=== PATIENT | female | born 1945 | race Caucasian/White ===

== ENCOUNTER 2016-10-10 14:35 | Emergency (ER) | payer MEDICARE, OTHER ==
[2016-10-10 14:59] VITALS: BP 151/71
--- NOTE | 2016-10-10 17:32 | EDM.PDOC ---
[id number]: BLOOD IN URINE Time Seen by Provider: 10/10/16 15:00 Source of Information: Reports: Patient History Limitations: Reports: No Limitations - History of Present Illness INITIAL COMMENTS - FREE TEXT/NARRATIVE: pt has blood in her urine which started suddenly last nite. She has not had hematuria in the past. She has a history of interstial cystitis. She is presently on cipro. Onset: Sudden Duration: Hour(s): Location: Reports: Other ( blood in the urine. She is not having severe pain. ) Associated Symptoms: Reports: No Other Symptoms Right Abdominal Pain Score (Numeric/FACES): 4 - Related Data Allergies Allergy/AdvReac Type Severity Reaction Status Date / Time codeine Allergy Dizziness Verified 10/10/16 15:44 Sulfa (Sulfonamide Allergy Rash Verified 10/10/16 15:44 Antibiotics) Home Meds: Home Meds Ciprofloxacin [Ciprofloxacin HCl] 1 tab PO DAILY 10/10/16 [History] Dicyclomine [Bentyl] 1 cap PO QID 10/10/16 [History] Lisinopril [Prinivil] 1 tab PO DAILY 10/10/16 [History] traZODone 1 tab PO BEDTIME 10/10/16 [History] Past Medical History HEENT History: Reports: Impaired Vision Cardiovascular History: Reports: Hypertension Genitourinary History: Reports: Renal Calculus, UTI, Recurrent, Other (See Below ) Other Genitourinary History: interstitial cystitis [employer]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: Musculoskeletal History: Reports: Fracture - Past Surgical History Female Surgical History: Reports: Hysterectomy, Salpingo-Oophorectomy Social & Family History - Tobacco Use Smoking Status *Q: Never Smoker - Recreational Drug Use Recreational Drug Use: No ED ROS GENERAL - Review of Systems Review Of Systems: See Below Constitutional: Reports: No Symptoms HEENT: Reports: No Symptoms Respiratory: Reports: No Symptoms Cardiovascular: Reports: No Symptoms Endocrine: Reports: No Symptoms GI/Abdominal: Reports: No Symptoms : Reports: Frequency, Hematuria Musculoskeletal: Reports: No Symptoms Skin: Reports: No Symptoms ED EXAM, RENAL/ - Physical Exam Exam: See Below Text/Narrative:: pt started passing blood in the urine last nite. This was painless. Exam Limited By: No Limitations General Appearance: Alert, Anxious Ears: Normal External Exam Nose: Normal Inspection Throat/Mouth: Normal Inspection Head: Atraumatic Neck: Normal Inspection Respiratory/Chest: No Respiratory Distress Cardiovascular: Regular Rate, Rhythm GI/Abdominal: Other ( mild supra pupic tenderness) (Female) Exam: Other (pt is post hysterectomy.) Back Exam: Normal Inspection Extremities: Normal Inspection Neurological: Alert, Oriented Course - Vital Signs Last Recorded V/S: Last Vital Signs Temp 35.2 C 10/10/16 15:40 Pulse 70 10/10/16 15:40 Resp 16 10/10/16 15:40 BP 151/71 H 10/10/16 15:40 Pulse Ox 97 10/10/16 15:40 - Orders/Labs/Meds Labs: Laboratory Tests 10/09/16 Range/Units 15:55 Urine Color Red Urine Appearance Cloudy Urine pH 7.0 (4.5-8.0) Ur Specific [place] 1.015 (1.008-1.030) Urine Protein Trace (NEGATIVE) mg/dL Urine Glucose (UA) Normal (NEGATIVE) mg/dL Urine Ketones Negative (NEGATIVE) mg/dL Urine Occult Blood Large (NEGATIVE) Urine Nitrite Negative (NEGATIVE) Urine Bilirubin Negative (NEGATIVE) Urine Urobilinogen Normal (NORMAL) mg/dL Ur Leukocyte Esterase Negative (NEGATIVE) Urine RBC Semi-packed H (0-5) Urine WBC 5-10 H (0-5) Ur Epithelial Cells Few Urine Bacteria Few Urine Mucus Few - Re-Assessments/Exams Free Text/Narrative Re-Assessment/Exam: 10/10/16 17:37 Pt had a cat scan that was done on September 30 which did not show any abnormalities in the kidneys. She has a urine which has very few bacteria. She is not on blood thinners. 10/12/16 18:14 I attempted to make arragements with urology in [place] and she decided to go back to [place]. Departure - Departure Time of Disposition: 17:30 Disposition: Home, Self-Care 01 Condition: Fair Clinical Impression: Hematuria - Discharge Information Instructions: Hematuria, Adult Referrals: PCP,None [Primary Care Provider] - Forms: ED Department Discharge Care Plan Goals: push fluids, pt needs to see a urologist in the next few days and be cystoscoped. cont cipro refill bentyl 10mg qid. If bleeding should get heavy call the [place] [facility] of urologist and try to be seen --[phone]
== END 2016-10-10 18:06 | disposition home or self-care (01) ==
LOC: JP.ED 14:35
DX: R31.9 Hematuria, unspecified (principal); I10 Essential (primary) hypertension; Z88.2 Allergy status to sulfonamides; Z88.5 Allergy status to narcotic agent; Z79.899 Other long term (current) drug therapy; Z87.442 Personal history of urinary calculi; Z87.440 Personal history of urinary (tract) infections; Z90.710 Acquired absence of both cervix and uterus; Z90.721 Acquired absence of ovaries, unilateral
CPT/HCPCS: 81001; 99283; 99284